=== PATIENT | male | born 1955 | race Hispanic/Latino ===

== ENCOUNTER 2023-04-19 05:45 | Day surgery (SDC) | payer OTHER ==
[2023-04-16 08:43] LABS: BASOPHILS # (AUTO) 0.07 K/uL (0.00-0.20); BASOPHILS % (AUTO) 0.8 % (0.0-5.0); EOSINOPHILS # (AUTO) 0.39 K/uL (0.00-0.70); EOSINOPHILS % (AUTO) 4.6 % (0.0-8.0); HEMATOCRIT 49.2 % (42-54); IMMATURE GRANULOCYTE ABSOLUTE 0.04 K/uL (0-1); LYMPHOCYTES # (AUTO) 1.1 K/uL (1.0-4.8); LYMPHOCYTES % (AUTO) 13.4 % (21.0-51.0); MEAN CORPUSCULAR HEMOGLOBIN 30.1 pg (27.0-33.0); MEAN CORPUSCULAR HGB CONC 33.5 g/dL (32.0-36.0); MEAN CORPUSCULAR VOLUME 89.8 fL (79-99); MONOCYTES # (AUTO) 0.4 K/uL (0.1-1.0); MONOCYTES % (AUTO) 5.2 % (3.0-13.0); NEUTROPHILS # (AUTO) 6.5 K/uL (1.8-7.7); NEUTROPHILS % (AUTO) 75.5 % (40.0-77.0); PLATELET COUNT (AUTO) 218 K/uL (130-400); RED BLOOD CELL COUNT(AUTO) 5.48 MIL/uL (4.50-6.20); WHITE BLOOD COUNT (AUTO) 8.5 K/uL (4.8-10.8)
[2023-04-16 08:49] LABS: CREATININE 0.8 mg/dL (0.5-1.5); POTASSIUM 3.8 mmol/L (3.5-5.1)
[2023-04-16 08:52] VITALS: BP 138/76; PULSE 75; RESP 16
[2023-04-16 09:02] LABS: INR < 0.93 (0.85-1.15); PROTHROMBIN TIME 10.6 SEC (9.6-11.6)
[2023-04-16 09:04] LABS: PARTIAL THROMBOPLASTIN TIME 29.2 SEC (26.3-35.5)
[~2023-04-19] VITALS: Ht 167.6 cm; Wt 66.5 kg
[2023-04-19] VITALS (14 sets, daily range): BP systolic 106–127; BP diastolic 52–68; PULSE 70–85; RESP 14–16
[~2023-04-19 05:45] MED LIST: LISI10TA24 PO
[2023-04-19] MEDS ORDERED: 0.9%NACL 1000ML 1,000 ML IV ONE ×2 (06:50→07:19)
[2023-04-19] MEDS ORDERED: ROSU10TA28 PO (07:08)
[2023-04-19] MEDS ORDERED: IODIXANOL 320 MG/ML 100 ML VIAL ONE (07:13)
[2023-04-19] MEDS ORDERED: NITROGLYCERIN 50MG VIAL ONE (07:13)
[2023-04-19] MEDS ORDERED: LIDOCAINE HCL 400MG/20ML VIAL ONE (07:13)
[2023-04-19] MEDS ORDERED: HEPARIN 10,000 UNIT/10ML (1,000 UNIT/ML) VIAL ONE (07:14)
[2023-04-19] MEDS ORDERED: FENTANYL CITRATE PF 50 MCG/1 ML 2ML VIAL ONE (07:23)
[2023-04-19] MEDS ORDERED: MIDAZOLAM HCL 1 MG/ML 2ML VIAL ONE (07:24)
[2023-04-19] MEDS ORDERED: DEXTROSE 50%-WATER 50 ML DISP.SYRIN IV PRN (08:30)
[2023-04-19] MEDS ORDERED: ACETAMINOPHEN WITH CODEINE 1 TAB TAB PO PRN ×2 (08:30)
[2023-04-19] MEDS ORDERED: GLUCAGON 1MG KIT 1 MG ML IM PRN (08:30)
[2023-04-19] MEDS ORDERED: CLOPIDOGREL 300MG TAB ONE (08:35)
[2023-04-19] MEDS ORDERED: HYDRALAZINE 20MG/ML VIAL ONE (08:40)
[2023-04-19] MEDS ORDERED: HYDRALAZINE 20MG/ML VIAL IV PRN (09:00)
[2023-04-19] MEDS ORDERED: ATROPINE 1MG SYG IVP ONE (09:57)
== END 2023-04-19 13:10 | disposition home or self-care (01) ==
LOC: DAH 05:45
PROVIDERS: ATTEND Internal Medicine Cardiovascular Disease
DX: I77.1 Stricture of artery (principal); G45.8 Other transient cerebral ischemic attacks and related syndromes; I10 Essential (primary) hypertension; M19.90 Unspecified osteoarthritis, unspecified site; F17.210 Nicotine dependence, cigarettes, uncomplicated; Z82.49 Family history of ischemic heart disease and other diseases of the circulatory system; Z72.89 Other problems related to lifestyle; Z79.01 Long term (current) use of anticoagulants
CPT/HCPCS: 80048; 85025; 85610; 85730; 36415 ×2; 37236; 36215; 37252; 85347; 75710; C1769 ×2; C1894 ×3; C1893; C1753; C2623; C1876; C1887; J3010; J3490 ×2; J7030 ×2; J0360; J1644 ×2; J2250; Q9967; A4215; A4222; A4221; A4663; A4216; A4606; A4223 ×3; 99156; 99157; J0461

== ENCOUNTER → 2023-07-24 | Outpatient (CLI) | payer OTHER ==
[~2023-07-24] MED LIST changes: +ROSU10TA28 PO
== END | disposition home or self-care (01) ==
LOC: SHCH 08:05
PROVIDERS: ATTEND Internal Medicine Cardiovascular Disease
DX: I70.203 Unspecified atherosclerosis of native arteries of extremities, bilateral legs (principal); I87.1 Compression of vein; I10 Essential (primary) hypertension
CPT/HCPCS: 93925; 93970

== ENCOUNTER → 2024-03-18 | Outpatient (CLI) | payer OTHER ==
[~2024-03-18] MED LIST changes: -ROSU10TA28 PO; +ROSU10TA72 PO
== END | disposition home or self-care (01) ==
LOC: SHCH 11:05
PROVIDERS: ATTEND Internal Medicine Cardiovascular Disease
DX: I87.2 Venous insufficiency (chronic) (peripheral) (principal)
CPT/HCPCS: 93970